=== PATIENT | female | born 1965 | race Caucasian/White ===

== ENCOUNTER 2017-02-21 13:13 | Emergency (ER) | payer MEDICAID ==
[2017-02-21 13:24] VITALS: BMI 29.2
[2017-02-21 13:29] VITALS: RESP 18; TEMP 98.4
--- NOTE | 2017-02-21 14:41 | C.PDOC ---
History Of Present Illness 52-year-old female, presents to the emergency department with complaints of three-day duration of body aches, and pain to roof of mouth. Patient had an associated subjective fever and chills. States she was talking to friend today, and when she tried to clear her throat, she spit up yellow phlegm. Initially, she had mild chest pain, described as "tightness when you have a cold." which has now completely resolved. Denies shortness of breath, weakness, nausea/ vomiting. Time Seen by Provider: 02/21/17 13:49 Chief Complaint (Nursing): Chest Pain History Per: Patient History/Exam Limitations: no limitations Onset/Duration Of Symptoms: Days Current Symptoms Are (Timing): Still Present Severity: Moderate Past Medical History Reviewed: Historical Data, Nursing Documentation, Vital Signs Vital Signs: Last Vital Signs Temp 98.4 F 02/21/17 15:07 Pulse 73 02/21/17 15:07 Resp 18 02/21/17 15:07 BP 118/82 02/21/17 15:07 Pulse Ox 97 02/21/17 15:07 - Medical History PMH: Back Problems, HTN, Hypothyroidism Family History: States: No Known Family Hx - Social History Hx Tobacco Use: No Hx Alcohol Use: No Hx Substance Use: No - Immunization History Hx Tetanus Toxoid Vaccination: No Hx Influenza Vaccination: Yes Hx Pneumococcal Vaccination: No Review Of Systems Except As Marked, All Systems Reviewed And Found Negative. Constitutional: Positive for: Fever, Chills Cardiovascular: Negative for: Chest Pain Respiratory: Positive for: Sputum. Negative for: Shortness of Breath Gastrointestinal: Negative for: Nausea, Vomiting Musculoskeletal: Negative for: Back Pain Skin: Negative for: Rash Neurological: Negative for: Weakness, Numbness, Headache, Dizziness Physical Exam - Physical Exam Appears: Non-toxic, No Acute Distress Skin: Warm, Dry, No Rash Head: Atraumatic, Normacephalic Eye(s): bilateral: Normal Inspection, EOMI Nose: Normal Oral Mucosa: Moist Lips: Normal Appearing Throat: Erythema, No Exudate Neck: Normal ROM, Supple Cardiovascular: Rhythm Regular, No Murmur Respiratory: Normal Breath Sounds, No Rales, No Rhonchi, No Wheezing Gastrointestinal/Abdominal: Soft, No Tenderness Back: Normal Inspection Extremity: Normal ROM, No Deformity, No Swelling Neurological/Psych: Oriented x3, Normal Speech Gait: Steady ED Course And Treatment O2 Sat by Pulse Oximetry: 98 (room air) Pulse Ox Interpretation: Normal Medical Decision Making Medical Decision Making: Patient with complaints of mucus and yellow sputum when coughing and clearing her throat today. Exam was unremarkable. CXR ordered and reviewed showing no acute disease. Patient is resting comfortably, and is in no acute distress. She has no fever and stable vital signs. EKG done during triage showin normal sinus at 73 bpm with normal axis and no ST-T changes. Patient was instructed to follow up with Dr Portillo in 1-2 days for further evaluation. Disposition Counseled Patient/Family Regarding: Diagnosis, Need For Followup, Rx Given - Disposition Disposition: HOME/ ROUTINE Disposition Time: 14:41 Condition: STABLE Additional Instructions: Follow up with your primary medical doctor Lindsey in 2-5 days for further evaluation. Take medications as prescribed. Return to the emergency department at any time if symptoms persist or worsen. Prescriptions: Azithromycin [Z-Cliff] 250 mg PO DAILY #6 tab Instructions: Upper Respiratory Infection (ED) - POA Present On Arrival: None - Clinical Impression Clinical Impression: Upper respiratory infection - Scribe Statement The provider has reviewed the documentation as recorded by the Scribe (Minnie Neely) All medical record entries made by the Scribe were at my direction and personally dictated by me. I have reviewed the chart and agree that the record accurately reflects my personal performance of the history, physical exam, medical decision making, and the department course for this patient. I have also personally directed, reviewed, and agree with the discharge instructions and disposition.
--- NOTE | 2017-02-21 14:55 | RAD ---
HISTORY: cough COMPARISON: No prior. TECHNIQUE: Chest PA and lateral FINDINGS: LUNGS: No active pulmonary disease. PLEURA: No significant pleural effusion identified. No pneumothorax apparent. CARDIOVASCULAR: Normal. OSSEOUS STRUCTURES: No significant abnormalities. VISUALIZED UPPER ABDOMEN: Normal. OTHER FINDINGS: None. IMPRESSION: No active disease.
[2017-02-21 15:08] VITALS: BP 118/82; PULSE 73
[2017-02-21 17:31] VITALS: O2SAT 98
--- NOTE | 2017-02-22 11:09 | CARD ---
APPROVED REPORT EKG Measurement Heart [id number] <Conclusion> Normal sinus rhythm Normal ECG
== END 2017-02-21 15:09 | disposition home or self-care (01) ==
LOC: C.ER 13:13
DX: J06.9 Acute upper respiratory infection, unspecified (principal)

== ENCOUNTER 2017-03-10 13:27 | Emergency (ER) | payer MEDICAID, OTHER ==
[2017-03-10 13:28] VITALS: BMI 29.2
[2017-03-10 13:34] VITALS: BP 152/93; PULSE 72; RESP 18; TEMP 98.1
--- NOTE | 2017-03-10 14:02 | C.PDOC ---
History Of Present Illness 52 y/o female c/o painful throat since February 21; pt seen in ED then and prescribed a z-diego, which she took with no improvement in pain. pt then took some amoxicillin that she had at home qid x 5 days and still had throat pain., pain worse with swallowing and eating, denies any recent fevers. pt sts ibuprofen makes pain go away , but it returns. denies any change in voice. Time Seen by Provider: 03/10/17 13:41 Chief Complaint (Nursing): ENT Problem History Per: Patient History/Exam Limitations: None Onset/Duration Of Symptoms: Days (2 1/2 weeks) Current Symptoms Are (Timing): Still Present Quality (Mouth/Throat): Tenderness, Redness Symptoms Have Been: Continuous Severity: Moderate Past Medical History Reviewed: Historical Data, Nursing Documentation, Vital Signs Vital Signs: Last Vital Signs Temp 98.1 F 03/10/17 13:33 Pulse 72 03/10/17 13:33 Resp 18 03/10/17 13:33 BP 152/93 H 03/10/17 13:33 Pulse Ox 99 03/10/17 14:42 - Medical History PMH: Back Problems, HTN, Hypothyroidism Other PMH: thyroid ca Other Surgeries: thyroidectomy Family History: States: Unknown Family Hx - Social History Hx Tobacco Use: No Hx Alcohol Use: No Hx Substance Use: No - Immunization History Hx Tetanus Toxoid Vaccination: No Hx Influenza Vaccination: Yes Hx Pneumococcal Vaccination: No Review Of Systems Constitutional: Negative for: Fever, Chills ENT: Positive for: Throat Pain. Negative for: Ear Pain, Nose Discharge, Mouth Pain, Mouth Swelling, Throat Swelling Respiratory: Positive for: Cough (mild, dry) Gastrointestinal: Negative for: Nausea, Vomiting, Abdominal Pain Skin: Negative for: Rash Neurological: Negative for: Weakness, Numbness Physical Exam - Physical Exam Appears: Non-toxic, No Acute Distress Skin: Warm, Dry Head: Atraumatic, Normacephalic Eye(s): bilateral: Normal Inspection Ear(s): Bilateral: Normal Nose: Normal, No Discharge Oral Mucosa: Moist, No Drooling, No Trismus Tongue: Normal Appearing Lips: Normal Appearing Teeth: Normal Dentition Gingiva: Normal Appearing Throat: Erythema (to pharynx, right side more than left, no tonsillar enlargement. no uvula visualized. no tracheal tenderness. ), No Exudate, No Drooling, No Mass Neck: Normal ROM, Other (anterior scar on neck from thyroidectomy, no swelling, warmth, tenderness. ) Chest: Symmetrical, No Deformity, No Tenderness Cardiovascular: Rhythm Regular, No Murmur Respiratory: Normal Breath Sounds, No Rales, No Rhonchi, No Wheezing Neurological/Psych: Oriented x3, Normal Speech, Normal Cognition ED Course And Treatment O2 Sat by Pulse Oximetry: 97 Medical Decision Making Medical Decision Making: pt with 2 1/5 weeks of throat pain.check rapid strep. 235 pm rapid strep neg. pt peorts pain worse at nighttime; possible reflux causing pain. will d/c with ent f/u and pepcid and ibuprofen Disposition Counseled Patient/Family Regarding: Studies Performed, Diagnosis, Need For Followup, Rx Given - Disposition Referrals: [facility] [Outside] Ramon Conklin MD [Staff Provider] - Erasmo Portillo MD [Medical Doctor] - Disposition: HOME/ ROUTINE Disposition Time: 14:36 Condition: STABLE Additional Instructions: Gargle with warm salty water several times a day. Take ibuprofen 600 mg by mouth (with food) every 6 hours if needed for pain. Take Pepcid 20 mg ( genernic is famotidine) with dinner. Follow up with Dr Conklin or in medical clinic as soon as possible. Instructions: Pharyngitis (ED) - Clinical Impression Clinical Impression: Pharyngitis
[2017-03-10 23:28] VITALS: O2SAT 97
== END 2017-03-10 14:50 | disposition home or self-care (01) ==
LOC: C.ER 13:27
DX: J02.9 Acute pharyngitis, unspecified (principal)

== ENCOUNTER 2017-05-28 09:37 | Emergency (ER) | payer MEDICAID, OTHER ==
[2017-05-28 09:38] VITALS: BMI 29.2
[2017-05-28 09:53] VITALS: RESP 18
--- NOTE | 2017-05-28 11:20 | C.PDOC ---
History Of Present Illness 52 y/o female presents to ED with complaints of left anterior rib pain for 1 week. Patient states she thinks pain is associated with her heavy lifting at work or because of coughing a lot. Patient reports she has been taking Ibuprofen with some relief but pain comes back which prompted visit to ED today. Patient denies chest coffman, abdominal pain, back pain or any other complaints at this time. Time Seen by Provider: 05/28/17 10:20 Chief Complaint (Nursing): Rib Injury History Per: Patient History/Exam Limitations: no limitations Onset/Duration Of Symptoms: Days Current Symptoms Are (Timing): Still Present Past Medical History Reviewed: Historical Data, Nursing Documentation, Vital Signs Vital Signs: Last Vital Signs Temp 98.1 F 05/28/17 13:33 Pulse 68 05/28/17 13:33 Resp 18 05/28/17 13:33 BP 142/72 05/28/17 13:33 Pulse Ox 98 05/28/17 13:33 - Medical History PMH: Back Problems, HTN, Hypothyroidism Surgical History: No Surg Hx Family History: States: No Known Family Hx - Social History Hx Tobacco Use: No Hx Alcohol Use: No Hx Substance Use: No - Immunization History Hx Tetanus Toxoid Vaccination: No Hx Influenza Vaccination: Yes Hx Pneumococcal Vaccination: No Review Of Systems Except As Marked, All Systems Reviewed And Found Negative. Constitutional: Negative for: Fever, Chills Cardiovascular: Negative for: Chest Pain Respiratory: Positive for: Cough Gastrointestinal: Negative for: Nausea, Vomiting Musculoskeletal: Positive for: Other (Left rib pain) Skin: Negative for: Rash Physical Exam - Physical Exam Appears: Non-toxic, Other (uncomfortable) Skin: Normal Color, Warm, Dry, No Rash Head: Atraumatic, Normacephalic Eye(s): bilateral: Normal Inspection Oral Mucosa: Moist Neck: Normal ROM, Supple Chest: Symmetrical, Tenderness (to left lower anterior rib) Cardiovascular: Rhythm Regular, No Murmur Respiratory: Normal Breath Sounds, No Rales, No Rhonchi, No Wheezing Extremity: Normal ROM, Capillary Refill (<2 seconds) Neurological/Psych: Oriented x3, Normal Motor, Normal Sensation ED Course And Treatment O2 Sat by Pulse Oximetry: 99 (RA) Pulse Ox Interpretation: Normal - CT Scan/US ribs Other Rad Studies (CT/US): Read By Radiologist, Radiology Report Reviewed CT/US Interpretation: PROCEDURE: Radiographs of the Chest and Left Ribs. HISTORY: left rib pain. COMPARISON: None available. TECHNIQUE: Frontal radiograph of the chest and multiple oblique radiographs of the left ribs were obtained. FINDINGS: LEFT RIBS: No fracture or focal lesion visualized. LUNGS : Clear. PLEURA: No pneumothorax or pleural fluid. CARDIOVASCULAR: Normal sized heart. No pulmonary vascular congestion. OTHER FINDINGS: None. IMPRESSION: Unremarkable radiographs of the chest and left ribs. No left rib fracture. Progress Note: XRAY of left rib w/o acute changes. Patient was treated with Lidoderm and percocet with improvement. Patient was d/c home with PMD follow up. Disposition - Disposition Disposition: HOME/ ROUTINE Disposition Time: 13:17 Condition: STABLE Additional Instructions: Follow up with PMD within 1-2 days. Return to ED if feel worse. Prescriptions: Lidocaine 5% [Lidoderm] 1 patch TP DAILY #30 patch Ibuprofen [Motrin Tab] 600 mg PO Q8 #30 tab oxyCODONE/Acetaminophen [Percocet 5/325 mg Tab] 1 tab PO QID PRN #20 tab PRN Reason: Pain Instructions: Musculoskeletal Pain (ED) Forms: Work/School/Gym Excuse, [facility] (Azerbaijani) - Clinical Impression Clinical Impression: Rib pain on left side - PA / ALARM MECHANIC / Resident Statement MD/DO has reviewed & agrees with the documentation as recorded. - Scribe Statement The provider has reviewed the documentation as recorded by the Novaibluther Moreno All medical record entries made by the Daniel were at my direction and personally dictated by me. I have reviewed the chart and agree that the record accurately reflects my personal performance of the history, physical exam, medical decision making, and the department course for this patient. I have also personally directed, reviewed, and agree with the discharge instructions and disposition.
[2017-05-28] MEDS ORDERED: Lidocaine 5% Patch TD STA (11:48)
[2017-05-28] MEDS ORDERED: Oxycodone/Acetaminophen 5/325 mg Tab PO STA (11:49)
[2017-05-28] MEDS ORDERED: Oxycodone/Acetaminophen 5/325 mg Tab ONE (11:54)
[2017-05-28] MEDS ORDERED: Lidocaine 5% Patch TD ONE (11:54)
--- NOTE | 2017-05-28 13:20 | RAD ---
PROCEDURE: Radiographs of the Chest and Left Ribs. HISTORY: left rib pain COMPARISON: None available. TECHNIQUE: Frontal radiograph of the chest and multiple oblique radiographs of the left ribs were obtained. FINDINGS: LEFT RIBS: No fracture or focal lesion visualized. LUNGS: Clear. PLEURA: No pneumothorax or pleural fluid. CARDIOVASCULAR: Normal sized heart. No pulmonary vascular congestion. OTHER FINDINGS: None. IMPRESSION: Unremarkable radiographs of the chest and left ribs. No left rib fracture.
[2017-05-28 13:34] VITALS: BP 142/72; PULSE 68; TEMP 98.1
[2017-05-28 14:08] VITALS: O2SAT 99
== END 2017-05-28 13:34 | disposition home or self-care (01) ==
LOC: C.ER 09:37
DX: R07.81 Pleurodynia (principal)